=== PATIENT | female | born 1995 | race Hispanic/Latino ===

== ENCOUNTER 2016-11-17 13:54 | Emergency (ER) | payer OTHER ==
[~2016-11-17] VITALS: Ht 165.1 cm; Wt 68.1 kg
[2016-11-17 13:55] VITALS: BP 125/88
[2016-11-17] MEDS ORDERED: NAPR500T PO (15:19)
== END 2016-11-17 17:13 | disposition home or self-care (01) ==
LOC: M ED 13:54
DX: N94.6 Dysmenorrhea, unspecified (principal)